=== PATIENT | male | born 1980 | race Two or more races ===

== ENCOUNTER 2023-07-09 13:39 | Emergency (ER) | payer OTHER ==
[~2023-07-09] VITALS: Ht 172.7 cm; Wt 73.0 kg
[2023-07-09 14:07] VITALS: TEMP 98.5
[2023-07-09] MEDS ORDERED: GENTAMICIN SULFATE 0.3% OPHTHALMIC SOLUTION 5 ML OD ONE (14:30)
[2023-07-09 14:54] VITALS: BP 124/79; PULSE 62; RESP 16
== END 2023-07-09 14:54 | disposition home or self-care (01) ==
LOC: EMS 13:43
DX: H25.011 Cortical age-related cataract, right eye (principal); H10.31 Unspecified acute conjunctivitis, right eye
CPT/HCPCS: 99283